=== PATIENT | male | born 1995 | race Two or more races ===

== ENCOUNTER 2022-11-18 09:32 | Emergency (ER) | payer OTHER ==
[~2022-11-18] VITALS: Ht 177.8 cm; Wt 113.7 kg
[2022-11-18 11:39] VITALS: BP 143/82
[2022-11-18] MEDS ORDERED: ACET-1158 PO (14:26)
[2022-11-18] MEDS ORDERED: CEPH-510 PO (14:26)
[2022-11-18] MEDS ORDERED: IBUP800T26 PO (14:26)
== END 2022-11-18 14:27 | disposition home or self-care (01) ==
LOC: ER 09:32
DX: S61.210A Laceration without foreign body of right index finger without damage to nail, initial encounter (principal); W45.8XXA Other foreign body or object entering through skin, initial encounter; Y93.89 Activity, other specified; Y92.89 Other specified places as the place of occurrence of the external cause; Y99.8 Other external cause status
CPT/HCPCS: 12001; 73130